=== PATIENT | female | born 1990 | race Two or more races ===

== ENCOUNTER 2017-02-28 21:18 | Emergency (ER) | payer OTHER ==
[~2017-02-28] VITALS: Ht 157.5 cm; Wt 78.9 kg
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
[2017-02-28] MEDS ORDERED: ACETAMINOPHEN ES 500 MG TABLET ONE (21:42)
--- NOTE | 2017-02-28 21:47 | NUR ---
PT REC'D MEDICATION ORDERED.
--- NOTE | 2017-02-28 21:50 | NUR ---
ROLLER SKATER IS AT THE BEDSIDE FOR BLOOD DRAW.
[2017-02-28 21:57] LABS: BASOPHILS % (AUTO) 0.3 % (0.0-2.0); EOSINOPHILS # (AUTO) 0.1 /CMM (0.0-0.7); EOSINOPHILS % (AUTO) 1.1 % (0.0-6.0); HEMATOCRIT 37 % (33-45); HEMOGLOBIN 12.5 g/dL (11.5-14.8); LYMPHOCYTES # (AUTO) 1.7 /CMM (0.8-4.8); LYMPHOCYTES % (AUTO) 19.1 % (20.0-44.0); MEAN CORPUSCULAR HEMOGLOBIN 30 PG (26.0-33.0); MEAN CORPUSCULAR HGB CONC 34 g/dl (31.0-36.0); MEAN CORPUSCULAR VOLUME 89 fL (82-100); MONOCYTES # (AUTO) 0.1 /CMM (0.1-1.30); MONOCYTES % (AUTO) 1.2 % (2.0-12.0); NEUTROPHILS % (AUTO) 78.3 % (43.0-81.0); PLATELET COUNT (AUTO) 302 /CMM (150-450); RDW COEFFICIENT OF VARIATION 12.8 (11.5-15.0); RED BLOOD CELL COUNT(AUTO) 4.15 MIL/uL (4.0-5.2)
[2017-02-28] MEDS ORDERED: ACETAMINOPHEN ES 500 MG TABLET PO ONE (22:00)
[2017-02-28 22:08] LABS: CALCIUM, SERUM 8.7 mg/dL (8.5-10.1); CREATININE 0.6 mg/dL (0.6-1.3); POTASSIUM 3.6 mmol/L (3.5-5.1)
[2017-02-28 22:24] LABS: APPEARANCE,URINE CLEAR (CLEAR); BILIRUBIN,URINE NEGATIVE (NEGATIVE); BLOOD, URINE TRACE Ery/uL (NEGATIVE); COLOR,URINE YELLOW (YELLOW); KETONES,URINE NEGATIVE (NEGATIVE); LEUKOCYTE ESTERASE ,URINE NEGATIVE (NEGATIVE); NITRITE, URINE NEGATIVE (NEGATIVE); PH,URINE 6.5 (5.0-8.0); PROTEIN,URINE NEGATIVE (NEGATIVE); UGLUCOSE NEGATIVE (NEGATIVE); UROBILINOGEN,URINE 0.2 EU/dL (0.2)
[2017-02-28 22:31] LABS: INR 0.96 (0.87-1.13)
[2017-02-28 22:33] LABS: BACTERIA,URINE Moderate /HPF (None Seen); RBC,URINE 0-2 /HPF (0-2); SQUAMOUS EPITHELIAL CELL,UR Many /HPF (None Seen)
--- NOTE | 2017-02-28 22:59 | NUR ---
Patient discharged to home in stable condition. Written and verbal after care instructions given. Patient verbalizes understanding of instruction AND RX. PT AMBULATED OUT WITH A STEADY GAIT. PT TO F/U WITH ER OR PMD IN 2 DAYS FOR REDRAW OF HCG LEVEL. VSS.
[2017-02-28 23:01] VITALS: BP 120/72
== END 2017-02-28 22:58 | disposition home or self-care (01) ==
LOC: ER 21:21
DX: O20.0 Threatened abortion (principal); K21.9 Gastro-esophageal reflux disease without esophagitis
CPT/HCPCS: 36415; 76856; 80048; 81001; 84702; 85025; 85730; 87086; 99285; A4606; Z7610; 81000-TC

== ENCOUNTER 2017-03-02 10:47 | Emergency (ER) | payer OTHER ==
[~2017-03-02] VITALS: Ht 157.5 cm; Wt 78.9 kg
--- NOTE | 2017-03-02 13:32 | NUR ---
CALLED ([facility] [employer] TECHNICIAN), TRANSFERRED CALL TO DR. HUNTLEY.
--- NOTE | 2017-03-02 13:39 | NUR ---
CALLED , TRANSFERRED CALL TO
[2017-03-02] MEDS ORDERED: OMEP40CA37 PO (13:48)
[2017-03-02] MEDS ORDERED: HYDR-3026 PO (13:48)
[2017-03-02 14:59] VITALS: BP 128/72
== END 2017-03-02 15:01 | disposition home or self-care (01) ==
LOC: ER 10:48
DX: O46.90 Antepartum hemorrhage, unspecified, unspecified trimester (principal); K21.9 Gastro-esophageal reflux disease without esophagitis
CPT/HCPCS: 36415; 76856; 84702; 99285; A4606; Z7610

== ENCOUNTER 2017-04-18 14:28 | Emergency (ER) | payer OTHER ==
[~2017-04-18] VITALS: Ht 157.5 cm; Wt 76.2 kg
[~2017-04-18 14:28] MED LIST: HYDR-3026 PO; OMEP40CA37 PO
[2017-04-18 14:37] VITALS: BP 125/81
== END 2017-04-18 15:56 | disposition home or self-care (01) ==
LOC: ER 14:38
DX: J06.9 Acute upper respiratory infection, unspecified (principal); K21.9 Gastro-esophageal reflux disease without esophagitis
CPT/HCPCS: 99282; A4606; Z7610

== ENCOUNTER 2017-07-16 22:28 | Emergency (ER) | payer OTHER ==
[~2017-07-16] VITALS: Ht 157.5 cm; Wt 75.3 kg
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
[2017-07-16 23:04] LABS: BASOPHILS % (AUTO) 0.3 % (0.0-2.0); EOSINOPHILS % (AUTO) 1.5 % (0.0-6.0); HEMATOCRIT 32 % (33-45); HEMOGLOBIN 11.4 g/dL (11.5-14.8); LYMPHOCYTES # (AUTO) 3.5 /CMM (0.8-4.8); LYMPHOCYTES % (AUTO) 30.1 % (20.0-44.0); MEAN CORPUSCULAR HGB CONC 35 g/dl (31.0-36.0); MEAN CORPUSCULAR VOLUME 88 fL (82-100); MONOCYTES # (AUTO) 0.5 /CMM (0.1-1.30); MONOCYTES % (AUTO) 4.4 % (2.0-12.0); NEUTROPHILS # (AUTO) 7.5 /CMM (1.8-8.9); NEUTROPHILS % (AUTO) 63.7 % (43.0-81.0); PLATELET COUNT (AUTO) 319 /CMM (150-450); RDW COEFFICIENT OF VARIATION 12.5 (11.5-15.0); RED BLOOD CELL COUNT(AUTO) 3.63 MIL/uL (4.0-5.2); WHITE BLOOD COUNT (AUTO) 11.7 K/uL (4.3-11.0)
[2017-07-16 23:09] LABS: APPEARANCE,URINE CLEAR (CLEAR); BILIRUBIN,URINE NEGATIVE (NEGATIVE); BLOOD, URINE TRACE-INTA Ery/uL (NEGATIVE); COLOR,URINE YELLOW (YELLOW); KETONES,URINE NEGATIVE (NEGATIVE); LEUKOCYTE ESTERASE ,URINE NEGATIVE (NEGATIVE); NITRITE, URINE NEGATIVE (NEGATIVE); PROTEIN,URINE NEGATIVE (NEGATIVE); UGLUCOSE NEGATIVE (NEGATIVE); UROBILINOGEN,URINE 0.2 EU/dL (0.2)
[2017-07-16 23:18] LABS: BACTERIA,URINE Few /HPF (None Seen); SQUAMOUS EPITHELIAL CELL,UR Moderate /HPF (None Seen); WBC,URINE 0-2 /HPF (0-3)
[2017-07-16 23:19] LABS: INR 0.97 (0.87-1.13)
[2017-07-16 23:21] LABS: ALBUMIN 3.4 g/dL (3.4-5.0); BILIRUBIN,DIRECT 0.1 mg/dL (0.0-0.2); BILIRUBIN,TOTAL 0.3 mg/dL (0.2-1.0); CALCIUM, SERUM 8.8 mg/dL (8.5-10.1); CREATININE 0.4 mg/dL (0.6-1.3); POTASSIUM 3.4 mmol/L (3.5-5.1); TOTAL PROTEIN, SERUM 7.1 g/dL (6.4-8.2)
--- NOTE | 2017-07-17 02:19 | NUR ---
Patient discharged to home in stable condition. Written and verbal after care instructions given. Patient verbalizes understanding of instruction. VSS UPON DISCHARGE.
[2017-07-17 02:21] VITALS: BP 115/67
== END 2017-07-17 02:22 | disposition home or self-care (01) ==
LOC: ER 22:29
DX: O34.81 Maternal care for other abnormalities of pelvic organs, first trimester (principal); N83.201 Unspecified ovarian cyst, right side; K21.9 Gastro-esophageal reflux disease without esophagitis; Z3A.01 Less than 8 weeks gestation of pregnancy
CPT/HCPCS: 36415; 76856; 80048; 80076; 81001; 84702; 85025; 85730; 99285; A4606; Z7610 ×2; 81000-TC

== ENCOUNTER 2017-08-14 09:11 | Emergency (ER) | payer OTHER ==
[~2017-08-14] VITALS: Ht 157.5 cm; Wt 76.7 kg
--- NOTE | 2017-08-14 09:15 | NUR ---
AAOX3, CAME TO ER C/O WORSENING EPIGASTRIC PAIN X 2 WEEKS, 8 WEEKS , A3. SKIN IS WARM AND DRY. RESP IS EVEN AND UNLABORED WITH NAD NOTED. AWAITING MD FOR EVAL.
--- NOTE | 2017-08-14 09:52 | NUR ---
URINE OBTAINED AND SENT TO LAB.
--- NOTE | 2017-08-14 09:58 | NUR ---
NEW IV STARTED ON RAC, 20G. BLOOD DRAWN AND SENT TO LAB.
[2017-08-14] MEDS ORDERED: PANTOPRAZOLE 40 MG TABLET.DR PO ONE ×2 (10:18→10:30)
[2017-08-14] MEDS ORDERED: ACETAMINOPHEN 325 MG TABLET ONE (10:18)
[2017-08-14 10:22] LABS: BASOPHILS % (AUTO) 0.1 % (0.0-2.0); HEMATOCRIT 32 % (33-45); HEMOGLOBIN 11.4 g/dL (11.5-14.8); LYMPHOCYTES # (AUTO) 2.3 /CMM (0.8-4.8); LYMPHOCYTES % (AUTO) 25.7 % (20.0-44.0); MEAN CORPUSCULAR HGB CONC 36 g/dl (31.0-36.0); MEAN CORPUSCULAR VOLUME 88 fL (82-100); MONOCYTES # (AUTO) 0.3 /CMM (0.1-1.30); MONOCYTES % (AUTO) 3.2 % (2.0-12.0); NEUTROPHILS # (AUTO) 6.3 /CMM (1.8-8.9); PLATELET COUNT (AUTO) 298 /CMM (150-450); RED BLOOD CELL COUNT(AUTO) 3.63 MIL/uL (4.0-5.2)
[2017-08-14 10:24] LABS: APPEARANCE,URINE Clear (CLEAR); BILIRUBIN,URINE Negative (NEGATIVE); BLOOD, URINE Trace-intact Ery/uL (NEGATIVE); COLOR,URINE Yellow (YELLOW); KETONES,URINE Negative (NEGATIVE); LEUKOCYTE ESTERASE ,URINE Negative (NEGATIVE); NITRITE, URINE Negative (NEGATIVE); PH,URINE 7.5 (5.0-8.0); PROTEIN,URINE Trace mg/dl (NEGATIVE); UGLUCOSE Negative (NEGATIVE); UROBILINOGEN,URINE 0.2 EU/dL (0.2)
--- NOTE | 2017-08-14 10:28 | NUR ---
PATIENT MEDICATED PER MD ORDERS.
[2017-08-14 10:29] LABS: ALBUMIN 3.1 g/dL (3.4-5.0); BILIRUBIN,DIRECT 0.1 mg/dL (0.0-0.2); BILIRUBIN,TOTAL 0.3 mg/dL (0.2-1.0); CALCIUM, SERUM 8.6 mg/dL (8.5-10.1); CREATININE 0.4 mg/dL (0.6-1.3); POTASSIUM 3.3 mmol/L (3.5-5.1); TOTAL PROTEIN, SERUM 7.1 g/dL (6.4-8.2)
[2017-08-14] MEDS ORDERED: ACETAMINOPHEN 325 MG TABLET PO ONE (10:30)
[2017-08-14 10:33] LABS: BACTERIA,URINE Moderate /HPF (None Seen); SQUAMOUS EPITHELIAL CELL,UR Moderate /HPF (None Seen)
--- NOTE | 2017-08-14 13:05 | NUR ---
Patient discharged to home in stable condition. Written and verbal after care instructions given. Patient verbalizes understanding of instruction.
[2017-08-14 13:15] VITALS: BP 124/72
== END 2017-08-14 13:05 | disposition home or self-care (01) ==
LOC: ER 09:12
DX: O99.611 Diseases of the digestive system complicating pregnancy, first trimester (principal); R10.13 Epigastric pain; K21.9 Gastro-esophageal reflux disease without esophagitis; Z3A.08 8 weeks gestation of pregnancy
CPT/HCPCS: 36415; 80048; 80076; 81001; 83690; 84702; 85025; 87086; 99284; A4606; Z7610; 81000-TC

== ENCOUNTER 2018-05-17 15:20 | Emergency (ER) | payer OTHER ==
[~2018-05-17] VITALS: Ht 167.6 cm; Wt 72.6 kg
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
--- NOTE | 2018-05-17 15:50 | NUR ---
DR LEONE AT BEDSIDE
[2018-05-17] MEDS ORDERED: HYDROCODONE/APAP 5/325MG 1 EACH TABLET PO ONE (16:00)
[2018-05-17] MEDS ORDERED: HYDROCODONE/APAP 5/325MG 1 EACH TABLET ONE (16:18)
[2018-05-17 16:24] VITALS: BP 149/88
--- NOTE | 2018-05-17 16:24 | NUR ---
Patient discharged to home in stable condition. Written and verbal after care instructions given. Patient verbalizes understanding of instruction.
== END 2018-05-17 16:25 | disposition home or self-care (01) ==
LOC: ER 15:22
DX: T23.151A Burn of first degree of right palm, initial encounter (principal); K21.9 Gastro-esophageal reflux disease without esophagitis; X10.2XXA Contact with fats and cooking oils, initial encounter; Y93.89 Activity, other specified; Y92.000 Kitchen of unspecified non-institutional (private) residence as the place of occurrence of the external cause; Y99.8 Other external cause status
CPT/HCPCS: 16000; 99284; A4606; A6403

== ENCOUNTER 2019-01-31 09:21 | Emergency (ER) | payer OTHER ==
[~2019-01-31] VITALS: Ht 160 cm; Wt 81.6 kg
[~2019-01-31 09:21] MED LIST changes: -HYDR-3026 PO; +HYDR-500 PO; +OMEP40CA13 PO; -OMEP40CA37 PO
--- NOTE | 2019-01-31 09:27 | NUR ---
CAME IN FOR ABDOMINAL PAIN AND VOMITING X6 SINCE YESTERDAY. TO ER BED 10, HOOKED TO MONITOR, CHANGED TO HOSP [facility], AWAITING MD EAGLE.
--- NOTE | 2019-01-31 09:30 | NUR ---
URINE SPECIMEN COLLECTED AND SENT TO LAB.
--- NOTE | 2019-01-31 09:35 | NUR ---
DR TYLER AT BEDSIDE
[2019-01-31] MEDS ORDERED: ONDANSETRON HCL/PF 4 MG/2 ML VIAL ONE (09:46)
[2019-01-31 09:47] LABS: BASOPHILS % (AUTO) 0.2 % (0.0-2.0); EOSINOPHILS % (AUTO) 0.9 % (0.0-6.0); HEMATOCRIT 40 % (33-45); HEMOGLOBIN 13.4 g/dL (11.5-14.8); LYMPHOCYTES # (AUTO) 0.9 /CMM (0.8-4.8); LYMPHOCYTES % (AUTO) 7.4 % (20.0-44.0); MEAN CORPUSCULAR HGB CONC 33 g/dl (31.0-36.0); MEAN CORPUSCULAR VOLUME 90 fL (82-100); MONOCYTES # (AUTO) 0.4 /CMM (0.1-1.30); MONOCYTES % (AUTO) 3.6 % (2.0-12.0); NEUTROPHILS # (AUTO) 10.6 /CMM (1.8-8.9); NEUTROPHILS % (AUTO) 87.9 % (43.0-81.0); PLATELET COUNT (AUTO) 325 /CMM (150-450); RED BLOOD CELL COUNT(AUTO) 4.44 MIL/uL (4.0-5.2); WHITE BLOOD COUNT (AUTO) 12.1 K/uL (4.3-11.0)
[2019-01-31 09:56] LABS: CREATININE 0.5 mg/dL (0.6-1.3); POTASSIUM 3.7 mmol/L (3.5-5.1)
[2019-01-31] MEDS ORDERED: ONDANSETRON HCL/PF 4 MG/2 ML VIAL IVP ONE (10:00)
[2019-01-31] MEDS ORDERED: IV NS 0.9% 1,000 ML BAG IV ONE (10:00)
[2019-01-31 10:03] LABS: BILIRUBIN,DIRECT 0.1 mg/dL (0.0-0.2); BILIRUBIN,TOTAL 0.5 mg/dL (0.2-1.0)
[2019-01-31 10:04] LABS: ALBUMIN 3.9 g/dL (3.4-5.0); TOTAL PROTEIN, SERUM 8.1 g/dL (6.4-8.2)
--- NOTE | 2019-01-31 11:00 | NUR ---
PATIENT ABLE TO TOLERATE DRINKING WATER WITHOUT VOMITING. MADE MD AWARE
[2019-01-31 11:06] VITALS: BP 127/80
--- NOTE | 2019-01-31 11:13 | NUR ---
IV removed. Catheter intact and site benign. Pressure and 4x4 applied to site. No bleeding noted.Patient discharged to home in stable condition. Written and verbal after care instructions given. Patient verbalizes understanding of instruction.
== END 2019-01-31 11:14 | disposition home or self-care (01) ==
LOC: ER 09:23
DX: R11.2 Nausea with vomiting, unspecified (principal); R19.7 Diarrhea, unspecified; K21.9 Gastro-esophageal reflux disease without esophagitis
CPT/HCPCS: 36415; 80048; 80076; 83690; 84702; 85025; 96361; 96374; 99283; J2405; J7030

== ENCOUNTER 2019-11-18 20:25 | Emergency (ER) | payer OTHER ==
[~2019-11-18] VITALS: Ht 157.5 cm; Wt 79.4 kg
[2019-11-18 20:27] VITALS: BP 124/79
[2019-11-18] MEDS ORDERED: FAMOTIDINE (20 MG) 20 MG TABLET ONE (20:46)
[2019-11-18] MEDS ORDERED: diphenhydrAMINE HCL 50 MG CAPSULE ONE (20:46)
[2019-11-18] MEDS ORDERED: predniSONE 20 MG TABLET ONE (20:47)
[2019-11-18] MEDS: predniSONE 20 MG TABLET PO ONE (20:49)
[2019-11-18] MEDS: FAMOTIDINE (20 MG) 20 MG TABLET PO ONE (20:49)
[2019-11-18] MEDS: diphenhydrAMINE HCL 50 MG CAPSULE PO ONE (20:49)
== END 2019-11-18 21:02 | disposition home or self-care (01) ==
LOC: ER 20:29
DX: T61.11XA Scombroid fish poisoning, accidental (unintentional), initial encounter (principal); L50.0 Allergic urticaria; K21.9 Gastro-esophageal reflux disease without esophagitis; E66.9 Obesity, unspecified; Z68.32 Body mass index [BMI] 32.0-32.9, adult; Z79.899 Other long term (current) drug therapy; Y92.89 Other specified places as the place of occurrence of the external cause
CPT/HCPCS: 99284; J7512; Q0163

== ENCOUNTER 2020-09-04 19:24 | Inpatient (IN) | payer OTHER ==
[~2020-09-04] VITALS: Ht 157.5 cm; Wt 86.2 kg
[~2020-09-04 19:24] MED LIST changes: -OMEP40CA13 PO; +OMEP40CA21 PO
--- NOTE | 2020-09-04 19:30 | NUR ---
The patient bib mother for c/o lower mid abd pain since yesterday,. Rates pain 8/. +n/v +fever. The patient is alert and oriented x4. In room air and denies SOB. Respiration regular and unlabored. Will continue to monitor the patient.
--- NOTE | 2020-09-04 19:55 | NUR ---
URINE COLLECTED AND SENT TO THE LAB
[2020-09-04] MEDS ORDERED: ONDANSETRON HCL/PF 4 MG/2 ML VIAL IVP ONE (20:00)
[2020-09-04] MEDS ORDERED: MORPHINE SULFATE INJ 2 MG/ML DISP.SYRIN IV ONE ×2 (20:00→23:00)
--- NOTE | 2020-09-04 20:00 | NUR ---
ESTABLISHED RAC G 20, BLOOD SPECIMEN COLLECTED AND SENT TO THE LAB.
[2020-09-04] MEDS ORDERED: ONDANSETRON HCL/PF 4 MG/2 ML VIAL ONE (20:09)
[2020-09-04] MEDS ORDERED: MORPHINE SULFATE INJ 4 MG/ML DISP.SYRIN ONE (20:10)
[2020-09-04 20:29] LABS: BASOPHILS # (AUTO) 0.1 /CMM (0.0-0.2); BASOPHILS % (AUTO) 0.5 % (0.0-2.0); EOSINOPHILS % (AUTO) 0.2 % (0.0-6.0); HEMATOCRIT 36 % (33-45); HEMOGLOBIN 12.2 g/dL (11.5-14.8); LYMPHOCYTES # (AUTO) 2.2 /CMM (0.8-4.8); LYMPHOCYTES % (AUTO) 14.2 % (20.0-44.0); MEAN CORPUSCULAR HGB CONC 34 g/dl (31.0-36.0); MEAN CORPUSCULAR VOLUME 91 fL (82-100); MONOCYTES # (AUTO) 0.7 /CMM (0.1-1.30); MONOCYTES % (AUTO) 4.6 % (2.0-12.0); NEUTROPHILS # (AUTO) 12.6 /CMM (1.8-8.9); NEUTROPHILS % (AUTO) 80.5 % (43.0-81.0); PLATELET COUNT (AUTO) 304 /CMM (150-450); RED BLOOD CELL COUNT(AUTO) 3.98 MIL/uL (4.0-5.2); WHITE BLOOD COUNT (AUTO) 15.6 K/uL (4.3-11.0)
[2020-09-04 20:36] LABS: CALCIUM, SERUM 8.7 mg/dL (8.5-10.1); CREATININE 0.7 mg/dL (0.6-1.3); POTASSIUM 3.4 mmol/L (3.5-5.1)
[2020-09-04 20:43] LABS: ALBUMIN 3.6 g/dL (3.4-5.0); BILIRUBIN,DIRECT 0.2 mg/dL (0.0-0.2); BILIRUBIN,TOTAL 0.7 mg/dL (0.2-1.0); TOTAL PROTEIN, SERUM 7.6 g/dL (6.4-8.2)
[2020-09-04] MEDS ORDERED: IV NS 0.9% 250 ML IV ONE (21:11)
[2020-09-04] MEDS ORDERED: CT SWABBABLE VALVE TRANS SET 1 EA INFUS.SET MC ONE (21:11)
[2020-09-04] MEDS ORDERED: IOHEXOL-300 100 ML VIAL IV ONE (21:11)
--- NOTE | 2020-09-04 21:46 | NUR ---
DR. KAPLAN SPEAKING WITH RADIOLOGIST VIA TELEPHONE
--- NOTE | 2020-09-04 21:56 | NUR ---
DR. KAPLAN SPEAKING WITH ASSIST[facility], DR. CROWDER
[2020-09-04] MEDS ORDERED: PIPERACILLIN /TAZOBACTAM 3.375 G VIAL IV ONE (21:57)
[2020-09-04] MEDS ORDERED: PIPERACILLIN /TAZOBACTAM 3.375 G in IV D5W 50 ML IV ONE (22:00)
--- NOTE | 2020-09-04 22:17 | NUR ---
PER PARAMEDIC INSTRUCTOR CARMEN, AUTH TO ADMIT TO [facility] (AUTH TRACKING #[id number])
[2020-09-04] MEDS ORDERED: IV NS 0.9% 1,000 ML BAG IV ONE (22:30)
--- NOTE | 2020-09-04 22:50 | NUR ---
DR. KAPLAN SPEAKING WITH DR. ENGLE REGARDING ADMISSION
[2020-09-04] MEDS ORDERED: ACETAMINOPHEN 325 MG TABLET PO ONE (23:00)
--- NOTE | 2020-09-04 23:17 | NUR ---
BED ASSIGNMENT 114-1
--- NOTE | 2020-09-04 23:47 | NUR ---
REPORT GIVEN TO NURSE EVERARDO
[2020-09-05 00:05] VITALS: BP 98/54
--- NOTE | 2020-09-05 00:05 | NUR ---
RECEIVED PT FROM ER VIA [facility] WITH CC OF LEFT LOWER ABD PAIN WITH DX OF COLON PERFORATION, ON ROOM AIR TOLERATING WELL, SPO2 99% ABLE TO WALK FROM [facility] TO BED, V/S CHECKED AND RECORDED, STILL WITH PAIN OF 6/10 WITH FACIAL GRIMACING NOTED, HEAD TO TOE ASSESSMENT DONE, INITIAL ADMISSION ASSESSMENT DONE, PT TOLD ME SHE DID NOT RECEIVED ANY COVID VACCINE YET, HAVE RAC # 20 IV DRESSING DRY AND INTACT PATENT AND FLUSHED, ROOM ORIENTATION DONE, BED ON LOWEST POSITION AND LOCKED SIDE RAILS UP X 2 CALL LIGHT WITHIN REACH WILL CONT TO MONITOR
--- NOTE | 2020-09-05 00:30 | NUR ---
CALL DR ENGLE FOR ADMISSION ORDER, ORDER WAS GIVEN NOTED AND CARRIED OUT
--- NOTE | 2020-09-05 00:40 | NUR ---
RECEIVED CALL FROM DR. CROWDER AND HE TALK TO THE PATIENT ABOUT THE POSSIBLITY OF SURGERY IN THE MORNING, PER DR. CROWDER WE WILL OBSERVED FIRST THE PATIENT UNTIL MORNING THEN HE WILL SEE THE PATIENT AND ASSESS IF SHE STILL NEED THE SURGERY OR NOT BUT STILL KEEP THE PT NPO FOR NOW HE ALSO SAYS THAT IF THE PT EXPERIENCE SEVERE PAIN INFORMED HIM IMMEDIATELY AND HE WILL DO THE SURGERY EARLY IN THE MORNING, FOR NOW KEEP PT ON OBSERVATION, HE ALSO SUGGEST THE ZOSYN TO BE Q6H INSTEAD OF Q8H WILL INFORMED DR. ENGLE ABOUT THE RECOMMENDATION, WILL CONT TO MONITOR THE PT
--- NOTE | 2020-09-05 00:45 | NUR ---
DR HARMON AGREE TO GIVE ZOSYN 3.375 G IV Q6H NOTED AND CARRIED OUT
[2020-09-05] MEDS ORDERED: IV D5/ 0.9% NACL 1,000 ML IV PRN (01:00)
[2020-09-05] MEDS ORDERED: ZOLPIDEM TARTRATE 5 MG TABLET PO PRN (01:00)
[2020-09-05] MEDS ORDERED: diphenhydrAMINE HCL 50 MG/ML VIAL IV PRN (01:00)
[2020-09-05 04:00] VITALS: BP 93/53
[2020-09-05] MEDS: MORPHINE SULFATE INJ 4 MG/ML DISP.SYRIN IM PRN ×2 (04:33→10:24)
[2020-09-05 05:56] LABS: BASOPHILS % (AUTO) 0.1 % (0.0-2.0); EOSINOPHILS % (AUTO) 0.2 % (0.0-6.0); HEMATOCRIT 31 % (33-45); HEMOGLOBIN 10.5 g/dL (11.5-14.8); LYMPHOCYTES % (AUTO) 13.9 % (20.0-44.0); MEAN CORPUSCULAR HGB CONC 34 g/dl (31.0-36.0); MEAN CORPUSCULAR VOLUME 91 fL (82-100); MONOCYTES # (AUTO) 0.5 /CMM (0.1-1.30); MONOCYTES % (AUTO) 3.3 % (2.0-12.0); NEUTROPHILS # (AUTO) 11.9 /CMM (1.8-8.9); NEUTROPHILS % (AUTO) 82.5 % (43.0-81.0); PLATELET COUNT (AUTO) 264 /CMM (150-450); RED BLOOD CELL COUNT(AUTO) 3.46 MIL/uL (4.0-5.2); WHITE BLOOD COUNT (AUTO) 14.4 K/uL (4.3-11.0)
[2020-09-05] MEDS ORDERED: PIPERACILLIN /TAZOBACTAM 3.375 G in IV D5W 50 ML IV SCH (06:00)
--- NOTE | 2020-09-05 06:50 | NUR ---
PT ON BED ASLLEEP EASY TO WAKE UP NO SIGN OF RESPIRATORY DISTRESS MINIMAL PAIN 3/10 ON LEFT LOWER ABDOMEN STILL NOTED PT ABLE TO WALK TO THE BATHROOM, ALL NEEDS ATTENDED, BED ON LOWEST POSITION AND LOCKED SIDE RAILS UP X2 CALL LIGHT WITHIN REACH WILL ENDORSED TO AM SHIFT NURSE
[2020-09-05 06:52] LABS: CALCIUM, SERUM 7.7 mg/dL (8.5-10.1); CREATININE 0.6 mg/dL (0.6-1.3); POTASSIUM 2.9 mmol/L (3.5-5.1)
--- NOTE | 2020-09-05 07:30 | NUR ---
MS RN AM NOTES PT IN BED, ASLEEP, EASY TO WAKE UP AND RESPONDS TO NAME AND TOUCH, ON RA, NO SOB, RESPIRATION UNLABORED, MINIMAL PAIN 3-4/10 ON LEFT LOWER ABDOMEN STILL NOTED, WILL ADMINISTER PAIN MEDS IN A WHILE, RAC WITH D5NS AT 100 ML/HR, SITE CLEAR. REMAINS ON NPO, BRP, POC DISCUSSED WITH PT, VERBALIZED UNDERSTANDING, BED LOW, LOCKED, SAFETY MEASURES IN PLACE. CALL LIGHT WITHIN REACH.W ILL CONTINUE TO MONITOR.
[2020-09-05 08:00] VITALS: BP 107/59
[2020-09-05] MEDS ORDERED: CITA20TA16 PO (08:11)
[2020-09-05] MEDS: PANTOPRAZOLE 40 MG VIAL IV SCH (08:31)
[2020-09-05] MEDS: PIPERACILLIN /TAZOBACTAM 3.375 G in IV D5W 100 ML IV SCH ×2 (08:32→16:08)
[2020-09-05] MEDS: POTASSIUM CHLORIDE 20 MEQ TAB.PRT.SR PO SCH ×2 (09:27→10:23)
[2020-09-05] MEDS: CITALOPRAM HYDROBROMIDE 20 MG TABLET PO SCH (09:28)
--- NOTE | 2020-09-05 09:30 | NUR ---
RN NOTES DUE MEDS GIVEN SEEN BY DR. CROWDER EARLIER FOR SURGICAL ASSESSMENT. PER MD, WILL MONITOR FOR NOW. KEEP NPO.
--- NOTE | 2020-09-05 13:15 | NUR ---
RN NOTE DR. ESCALANTE INFORMED RE PT STILL COMPLAINS OF 8/10 LEFT LOWER QUADRANT PAIN DESPITE MORPHINE SULFATE 4 MG IV Q 4 HOURS. PER MD TO DC MORPHINE SULFATE AND START DILAUDID 1 MG IV Q4H PRN
[2020-09-05] MEDS: Potassium Chloride 20 MEQ in IV D5/ 0.9% NACL 1,000 ML IV PRN (13:26)
--- NOTE | 2020-09-05 14:00 | NUR ---
RN NOTES PATIENT NOW COMPLAINT THAT SHE WANT S TO PASS OUT GAS BUT COULD NOT AND SAYS IT PAINFUL. PER DR. ESCALANTE TO START COLACE 100 MG PO BID
[2020-09-05 16:00] VITALS: BP 103/61
--- NOTE | 2020-09-05 16:00 | NUR ---
RN NOTES PATIENT WITH ELEVATED TEMP 100.3. COOLING MEASURES AND TYLENOL GIVEN.
[2020-09-05] MEDS: DOCUSATE SODIUM 100 MG CAPSULE PO SCH (16:08)
[2020-09-05] MEDS: ACETAMINOPHEN 325 MG TABLET PO PRN (16:08)
--- NOTE | 2020-09-05 16:30 | NUR ---
RN NOTES TEMPERATURE RE CHECKED 99.7
--- NOTE | 2020-09-05 18:44 | NUR ---
MS RN CLOSING NOTES PT IN BED, RESTING, DOZING FROM TIME TO TIME, EASY TO WAKE UP AND RESPONDS TO NAME AND TOUCH, ON RA, NO SOB, RESPIRATION UNLABORED, MINIMAL PAIN 3-4/10 ON LEFT LOWER ABDOMEN STILL NOTED, ON AND OFF, PATIENT STATES, SHE WANTS TO PASS OUT GAS BUT IT IS PAINFUL. RAC WITH IVF RUNNING AT 100 ML/HR, SITE CLEAR. REMAINS ON NPO EXCEPT MEDS, BRP, BED LOW, LOCKED, SAFETY MEASURES IN PLACE. ALL NEEDS MET FOR NOW. NO OTHER SIGNIFICANT CHANGE IN CONDITION, CALL LIGHT WITHIN REACH. WILL ENDORSE TO NEXT SHIFT FOR ADRIANA.
--- NOTE | 2020-09-05 19:00 | NUR ---
RN NOTE RECEIVED PATIENT IN BED RESTING ALERT ORIENTED X4 ABLE TO MAKE NEEDS KNOWN,ON ROOM AIR O2:98%,IV SITE IS ON RAC INTACT PATENT ON IV POTASSIUM 20 MEQ ON D5NS 100CC/HR, NPO EXCEPT THE MEDS,CONTINENT TO BOWEL/BLADDER SAFETY MEASURE IMPLEMENT BED IN LOW POSITION AND LOCKED,CALL LIGHT WITHIN REACH,CONTINUE TO MONITOR.
[2020-09-05] MEDS: HYDROMORPHONE 1 MG/1 ML DISP.SYRIN IV PRN (22:22)
[2020-09-06] VITALS: BP 99/59
[2020-09-06] MEDS: PIPERACILLIN /TAZOBACTAM 3.375 G in IV D5W 100 ML IV SCH ×4 (00:06→23:26)
[2020-09-06] MEDS: Potassium Chloride 20 MEQ in IV D5/ 0.9% NACL 1,000 ML IV PRN ×2 (04:37→17:37)
--- NOTE | 2020-09-06 06:52 | NUR ---
RN NOTE PATIENT REMAINS ON ALERT ORIENTED X4 VERBALLY RESPONSIVE ON ROOM AIR NO SOB NOT ACUTE DISTRESS NOTED PATIENT IS ON NPO EXCEPT MEDS IV HYDRATION POTASSIUM 20MEQ IN D5NS RUNNING 100CC/HR ALL DUE MEDS GIVEN MD ORDERED ALL NEEDS MET ENDORSE NEXT COMING SHIFT FOR CONTINUATION OF CARE.
[2020-09-06 06:57] LABS: BASOPHILS % (AUTO) 0.2 % (0.0-2.0); EOSINOPHILS % (AUTO) 1.2 % (0.0-6.0); HEMATOCRIT 32 % (33-45); HEMOGLOBIN 10.6 g/dL (11.5-14.8); LYMPHOCYTES # (AUTO) 2.1 /CMM (0.8-4.8); LYMPHOCYTES % (AUTO) 17.6 % (20.0-44.0); MEAN CORPUSCULAR HGB CONC 33 g/dl (31.0-36.0); MEAN CORPUSCULAR VOLUME 92 fL (82-100); MONOCYTES # (AUTO) 0.5 /CMM (0.1-1.30); MONOCYTES % (AUTO) 4.4 % (2.0-12.0); NEUTROPHILS # (AUTO) 9.2 /CMM (1.8-8.9); NEUTROPHILS % (AUTO) 76.6 % (43.0-81.0); PLATELET COUNT (AUTO) 274 /CMM (150-450)
--- NOTE | 2020-09-06 07:15 | NUR ---
RN OPENING NOTES PT RECEIVED IN BED RESTING IN SUPINE POSITION. PATIENT ON ROOM AIR TOLERATING WELL WITH NO SIGNS OF SOB. RAC IV ACCESS #20 G PATENT AND INTACT WITH KCL 20 MEQ IN D5NS RUNNING AT 100 ML/HR. PATIENT ON NPO EXCEPT MEDS. SAFETY PRECAUTIONS IMPLEMENTED, SIDE RAILS UP X2, CALL LIGHT WITHIN REACH, BED LOCKED IN LOWEST POSITION. WILL CONTINUE TO MONITOR AND PROVIDE CARE THROUGHOUT SHIFT.
[2020-09-06 07:36] LABS: CALCIUM, SERUM 8.2 mg/dL (8.5-10.1); CREATININE 0.5 mg/dL (0.6-1.3); MAGNESIUM 2.1 mg/dL (1.8-2.4); POTASSIUM 3.8 mmol/L (3.5-5.1)
[2020-09-06 08:00] VITALS: BP 109/65
[2020-09-06] MEDS: PANTOPRAZOLE 40 MG VIAL IV SCH (08:29)
[2020-09-06] MEDS: CITALOPRAM HYDROBROMIDE 20 MG TABLET PO SCH (08:32)
[2020-09-06] MEDS: DOCUSATE SODIUM 100 MG CAPSULE PO SCH ×2 (08:32→17:35)
[2020-09-06] MEDS: HYDROCODONE/APAP 5/325MG TABLET PO PRN (08:37)
[2020-09-06] MEDS ORDERED: BISACODYL (5 MG) 5 MG TABLET.DR PO ONE (09:00)
[2020-09-06] MEDS: ONDANSETRON HCL/PF 4 MG/2 ML VIAL IV PRN ×2 (11:32→18:33)
[2020-09-06 16:00] VITALS: BP 108/68
[2020-09-06] MEDS: HYDROMORPHONE 1 MG/1 ML DISP.SYRIN IV PRN ×2 (17:35→22:37)
--- NOTE | 2020-09-06 18:42 | NUR ---
RN CLOSING NOTES PT IN BED RESTING IN RIGHT LATERAL POSITION. PATIENT ON ROOM AIR TOLERATING WELL WITH NO SIGNS OF SOB. RAC IV ACCESS #20 G PATENT AND INTACT WITH KCL 20 MEQ IN D5NS RUNNING AT 100 ML/HR. PATIENT HAD I EPISODE OF YELLOW EMESIS (50 ML) PRIOR TO START OF CLEAR LIQUID DIET. PATIENT COMPLAINED OF ABDOMINAL PAIN 2 X AND NORCO AND DILAUDID ADMINISTERED ON SEPARATE OCCASIONS. PATIENT HAD 4 LOOSE WATERY STOOLS BROWNISH, GREENISH COLOR. SAFETY PRECAUTIONS IMPLEMENTED, SIDE RAILS UP X2, CALL LIGHT WITHIN REACH, BED LOCKED IN LOWEST POSITION. WILL ENDORSE CARE TO UPCOMING SHIFT.
--- NOTE | 2020-09-06 19:30 | NUR ---
RN NOTE RECEIVED PT IN BED, ALERT AND ORIENTED X 4. COMPLAINS OF ABDOMINAL PAIN. PER PT PAIN IS GETTING BETTER NOW. PT NOT IN ANY DISTRESS. DENIES SOB. IV ON RAC PATENTAND INTACT, D5NS WITH 20MEQ KCL RUNNING. NO SIGNS OF INFILTRATION NOTED. ALL SAFETY MEASURES IN PLACE PER PROTOCOL, CALL LIGHT WITHIN REACH, BED LOCKED IN LOWEST POSITION. SIDE RAILS UP X 2. WILL CONTINUE TO MONITOR.
[2020-09-06 20:00] VITALS: BP 106/63
[2020-09-06] MEDS: ACETAMINOPHEN 325 MG TABLET PO PRN (22:08)
--- NOTE | 2020-09-06 22:13 | NUR ---
RN NOTE PT NOTED WITH ELEVATED TEMP 100.5, TYLENOL GIVEN ORDERED. WILL CONTINUE TO MONITOR.
--- NOTE | 2020-09-07 00:15 | NUR ---
RN NOTE TEMP 98.9. COOLING MEASURES WERE APPLIED.
[2020-09-07 04:00] VITALS: BP_SYST 93; BP_SYST 95; BP_DIAS 57
[2020-09-07] MEDS: Potassium Chloride 20 MEQ in IV D5/ 0.9% NACL 1,000 ML IV PRN ×2 (04:00→17:12)
[2020-09-07 05:57] LABS: BASOPHILS % (AUTO) 0.1 % (0.0-2.0); EOSINOPHILS % (AUTO) 0.8 % (0.0-6.0); HEMATOCRIT 31 % (33-45); HEMOGLOBIN 10.4 g/dL (11.5-14.8); LYMPHOCYTES # (AUTO) 1.5 /CMM (0.8-4.8); LYMPHOCYTES % (AUTO) 12.7 % (20.0-44.0); MEAN CORPUSCULAR HGB CONC 33 g/dl (31.0-36.0); MEAN CORPUSCULAR VOLUME 92 fL (82-100); MONOCYTES # (AUTO) 0.5 /CMM (0.1-1.30); MONOCYTES % (AUTO) 4.3 % (2.0-12.0); NEUTROPHILS # (AUTO) 9.7 /CMM (1.8-8.9); NEUTROPHILS % (AUTO) 82.1 % (43.0-81.0); PLATELET COUNT (AUTO) 302 /CMM (150-450); RED BLOOD CELL COUNT(AUTO) 3.38 MIL/uL (4.0-5.2); WHITE BLOOD COUNT (AUTO) 11.8 K/uL (4.3-11.0)
[2020-09-07 06:48] LABS: CALCIUM, SERUM 8.2 mg/dL (8.5-10.1); CREATININE 0.6 mg/dL (0.6-1.3); POTASSIUM 3.9 mmol/L (3.5-5.1)
--- NOTE | 2020-09-07 07:02 | NUR ---
RN NOTE PT ABLE TO MAKE NEEDS KNOWN. PT STILL COMPLAINS OF ABDOMINAL PAIN 09/24. REFUSED TO TAKE ANY PAIN MED AT THIS TIME. NO DISTRESS NOTED. PT AMBULATES TO RESTROOM, STEADY GAIT. CONTINUE ON IVF. IV REMAIN PATENT AND INTACT. PT WITH LOOSE STOOL, 1 BM DURING SHIFT. ALL SAFETY MEASURES MAINTAINED. WILL ENDORSE TO NEXT SHIFT NURSE FOR ADRIANA.
--- NOTE | 2020-09-07 07:20 | NUR ---
RN OPENING NOTES PT RECEIVED IN BED RESTING IN SUPINE POSITION. PATIENT ON ROOM AIR TOLERATING WELL WITH NO SIGNS OF SOB. RAC IV ACCESS #20 G PATENT AND INTACT WITH KCL 20 MEQ IN D5NS RUNNING AT 100 ML/HR. PATIENT ON CLEAR LIQUID DIET. SAFETY PRECAUTIONS IMPLEMENTED, SIDE RAILS UP X2, CALL LIGHT WITHIN REACH, BED LOCKED IN LOWEST POSITION. WILL CONTINUE TO MONITOR AND PROVIDE CARE THROUGHOUT SHIFT.
[2020-09-07 08:00] VITALS: BP 106/56
[2020-09-07] MEDS: PANTOPRAZOLE 40 MG VIAL IV SCH (08:11)
[2020-09-07] MEDS: PIPERACILLIN /TAZOBACTAM 3.375 G in IV D5W 100 ML IV SCH ×2 (08:13→15:12)
[2020-09-07] MEDS: DOCUSATE SODIUM 100 MG CAPSULE PO SCH ×2 (08:13→17:12)
[2020-09-07] MEDS: CITALOPRAM HYDROBROMIDE 20 MG TABLET PO SCH (08:14)
[2020-09-07] MEDS: HYDROCODONE/APAP 5/325MG TABLET PO PRN (08:17)
[2020-09-07] MEDS ORDERED: ACET-907 PO (08:50)
[2020-09-07] MEDS ORDERED: METR500T PO (08:50)
[2020-09-07] MEDS ORDERED: LEVO500T90 PO (08:50)
[2020-09-07 16:00] VITALS: BP 109/65
--- NOTE | 2020-09-07 18:49 | NUR ---
RN CLOSING NOTES PT IN BED RESTING IN SUPINE POSITION. PATIENT ON ROOM AIR TOLERATING WELL WITH NO SIGNS OF SOB. RAC IV ACCESS #20 G PATENT AND INTACT WITH KCL 20 MEQ IN D5NS RUNNING AT 100 ML/HR. PATIENT ON CLEAR LIQUID DIET. SAFETY PRECAUTIONS IMPLEMENTED, SIDE RAILS UP X2, CALL LIGHT WITHIN REACH, BED LOCKED IN LOWEST POSITION. WILL ENDORSE CARE TO UPCOMING SHIFT. WENT OVER DISCHARGE PAPERWORK AND INSTRUCTIONS PRIOR TO DISCHARGE. PATIENT WILL BE GOING HOME ONCE ANTIBIOTICS ARE COMPLETED. MOTHER WILL BE PICKING PATIENT UP. INFORMED PATIENT TO F/U WITH PCP WITHIN 2 WEEKS AND TO F/U WITH GI WITHIN 4-7 WEEKS REGARDING ELECTIVE COLONOSCOPY.
[2020-09-07 20:00] VITALS: BP 119/77
--- NOTE | 2020-09-07 20:03 | NUR ---
MS/TELE/RN RECEIVED PATIENT AWAKE, ALERT, ORIENTED, COMFORTABLE, NO C/O PAIN, NO DISTRESS NOTED, VITAL SIGNS STABLE, AFEBRILE. PATIENT WILL BE DISCHARGED TONIGHT AFTER FINISHING UP THE ANTIBIOTIC, WILL MONITOR.
--- NOTE | 2020-09-07 20:36 | NUR ---
EVETTE/RN PATIENT LEFT THE FLOOR AT 2004 ACCOMPANIED BY HER , IN STABLE CONDITION. IV AND ARMBAND WERE REMOVED,
[2020-09-08] MEDS ORDERED: PANTOPRAZOLE 40 MG TABLET.DR PO SCH (07:30)
== END 2020-09-07 20:53 | disposition home or self-care (01) | DRG 720 ==
LOC: ER 19:25 → MEDSG1 23:27
PROVIDERS: ADMIT Internal Medicine; ATTEND Internal Medicine
DX: A41.9 Sepsis, unspecified organism (principal); K57.20 Diverticulitis of large intestine with perforation and abscess without bleeding; E66.9 Obesity, unspecified; K21.9 Gastro-esophageal reflux disease without esophagitis; Z20.822 Contact with and (suspected) exposure to COVID-19; F32.9 Major depressive disorder, single episode, unspecified; Z68.34 Body mass index [BMI] 34.0-34.9, adult
CPT/HCPCS: 36415; 76856-TC; 80048-TC; 80076-TC; 83605-TC; 83690-TC; 83735-TC; 84702-TC; 85025-TC; 85730-TC; 86850-TC; 87040-TC; 87081-TC; C9113; C9803; G0378; J1170; J2270; J2405; J2543; J3480; J7030; J7042; J7050; J7060; Q9967

== ENCOUNTER 2020-10-06 14:19 | Emergency (ER) | payer OTHER ==
[~2020-10-06] VITALS: Ht 165.1 cm; Wt 95.3 kg
[~2020-10-06 14:19] MED LIST changes: +ACET-907 PO; +CITA20TA16 PO; -HYDR-500 PO; +LEVO500T90 PO; +METR500T PO; -OMEP40CA21 PO
--- NOTE | 2020-10-06 14:33 | NUR ---
CALLED TO BED 2, NOT IN WAITING ROOM
--- NOTE | 2020-10-06 14:50 | NUR ---
TO ER BED 2, C/O LLQ ABDOMINAL PAIN STARTED YESTERDAY, USUALLY GET WHEN MENSTRUATING PER PT, AWAITING MD EAGLE
--- NOTE | 2020-10-06 14:52 | NUR ---
SALINE LOCK ESTABLISHED, AT BEDSIDE
[2020-10-06] MEDS ORDERED: ONDANSETRON HCL/PF 4 MG/2 ML VIAL ONE ×3 (15:08→23:04)
[2020-10-06] MEDS ORDERED: MORPHINE SULFATE INJ 4 MG/ML DISP.SYRIN ONE ×2 (15:09→23:04)
[2020-10-06 15:10] LABS: BASOPHILS # (AUTO) 0.1 K/uL (0.0-0.2); BASOPHILS % (AUTO) 0.9 % (0.0-2.0); EOSINOPHILS % (AUTO) 1.3 % (0.0-6.0); HEMATOCRIT 36 % (33-45); HEMOGLOBIN 12.3 g/dL (11.5-14.8); LYMPHOCYTES # (AUTO) 3.4 K/uL (0.8-4.8); LYMPHOCYTES % (AUTO) 26.3 % (20.0-44.0); MEAN CORPUSCULAR HGB CONC 34 g/dl (31.0-36.0); MEAN CORPUSCULAR VOLUME 90 fL (82-100); MONOCYTES # (AUTO) 0.5 K/uL (0.1-1.30); MONOCYTES % (AUTO) 4.1 % (2.0-12.0); NEUTROPHILS # (AUTO) 8.7 K/uL (1.8-8.9); NEUTROPHILS % (AUTO) 67.4 % (43.0-81.0); PLATELET COUNT (AUTO) 300 K/uL (150-450); RED BLOOD CELL COUNT(AUTO) 4.05 MIL/uL (4.0-5.2); WHITE BLOOD COUNT (AUTO) 12.9 K/uL (4.3-11.0)
[2020-10-06] MEDS ORDERED: MORPHINE SULFATE INJ 2 MG/ML DISP.SYRIN IV ONE ×2 (15:30→23:30)
[2020-10-06] MEDS ORDERED: ONDANSETRON HCL/PF 4 MG/2 ML VIAL IVP ONE ×2 (15:30→21:30)
[2020-10-06 15:32] LABS: BILIRUBIN,URINE SMALL (NEGATIVE); COLOR,URINE YELLOW (YELLOW); LEUKOCYTE ESTERASE ,URINE Small (NEGATIVE); NITRITE, URINE Positive (NEGATIVE); PROTEIN,URINE Negative (NEGATIVE); UGLUCOSE Negative (NEGATIVE); UROBILINOGEN,URINE 0.2 EU/dL (0.2)
--- NOTE | 2020-10-06 15:37 | NUR ---
CALLED [facility]
[2020-10-06 15:40] LABS: ALBUMIN 3.7 g/dL (3.4-5.0); BILIRUBIN,DIRECT 0.1 mg/dL (0.0-0.2); BILIRUBIN,TOTAL 0.4 mg/dL (0.2-1.0); CALCIUM, SERUM 8.6 mg/dL (8.5-10.1); CREATININE 0.5 mg/dL (0.6-1.3); POTASSIUM 3.4 mmol/L (3.5-5.1); TOTAL PROTEIN, SERUM 7.9 g/dL (6.4-8.2)
--- NOTE | 2020-10-06 15:40 | NUR ---
PT WENT TO RADIOLOGY
--- NOTE | 2020-10-06 15:45 | NUR ---
PT BACK FROM RADIOLOGY
[2020-10-06 16:19] LABS: BACTERIA,URINE 1+ /HPF (None Seen); RBC,URINE 21-50 /HPF (0-2)
[2020-10-06] MEDS ORDERED: PIPERACILLIN /TAZOBACTAM 3.375 G in IV D5W 50 ML IV ONE (16:30)
--- NOTE | 2020-10-06 16:42 | NUR ---
CALLED PHARMACY, SPOKE TO MIRELLA DAVEY
[2020-10-06] MEDS ORDERED: IV NS 0.9% 1,000 ML BAG IV ONE (17:00)
[2020-10-06] MEDS ORDERED: CEFTRIAXONE 1GM BAG (ER ONLY) 50 ML IV ONE (17:00)
--- NOTE | 2020-10-06 18:34 | NUR ---
MELINDA MIX WORKING ON TX TO [facility] PER ADMITTING
--- NOTE | 2020-10-06 19:27 | NUR ---
REPORT GIVEN TO JUSTICE RIOS
--- NOTE | 2020-10-06 20:07 | NUR ---
PT ACCEPTED AT [facility] BY MD DELGADO.
--- NOTE | 2020-10-06 21:14 | NUR ---
VERBAL ORDER 1MG DILAUDED AND 4MG ZOFRAN
[2020-10-06] MEDS ORDERED: HYDROMORPHONE 1 MG/1 ML DISP.SYRIN ONE (21:16)
[2020-10-06] MEDS ORDERED: HYDROMORPHONE INJ 2 MG/ML DISP.SYRIN IV ONE (21:30)
--- NOTE | 2020-10-06 22:43 | NUR ---
TRANSFER INFORMATION PT ACCEPTED AT [facility] ACCEPTING MD DELGADO PHONE NUMBER FOR REPORT [facility] ETA 30 MIN.
--- NOTE | 2020-10-06 22:54 | NUR ---
REPORT GIVEN TO [facility] BLAN[facility] MARSH.
[2020-10-06 23:10] VITALS: BP 125/68
--- NOTE | 2020-10-06 23:24 | NUR ---
gave report to ems
[2020-10-06] MEDS ORDERED: ONDANSETRON HCL/PF 4 MG/2 ML VIAL IV ONE (23:30)
== END 2020-10-06 23:48 | disposition short-term general hospital (02) ==
LOC: ER 14:22
DX: K57.32 Diverticulitis of large intestine without perforation or abscess without bleeding (principal); K76.0 Fatty (change of) liver, not elsewhere classified; K21.9 Gastro-esophageal reflux disease without esophagitis; Z20.822 Contact with and (suspected) exposure to COVID-19
CPT/HCPCS: 36415; 74176; 80048; 80076; 81001; 83605; 83690; 84145; 84703; 85025; 87040 ×2; 87081; 87086; 87426; 96361; 96365; 96375; 96376; 99285; C9803; J2270 ×2; J2405 ×3; J2543; J7030; J7060; J1170

== ENCOUNTER 2021-01-16 09:56 | Emergency (ER) | payer OTHER ==
[~2021-01-16] VITALS: Ht 160 cm; Wt 81.6 kg
--- NOTE | 2021-01-16 10:04 | NUR ---
Patient came in to the er c/o LLQ pain since saturday, +nausea, constipated x 2 days, 6/10 pain scale. On room air, breathing evenly. connected to the monitor and pulse ox. Kept comfortable, will continue to monitor accordingly.
--- NOTE | 2021-01-16 10:10 | NUR ---
urine collected and sent to lab.
[2021-01-16 10:23] LABS: BASOPHILS # (AUTO) 0.1 K/uL (0.0-0.2); BASOPHILS % (AUTO) 0.9 % (0.0-2.0); EOSINOPHILS % (AUTO) 1.2 % (0.0-6.0); HEMATOCRIT 35 % (33-45); HEMOGLOBIN 11.9 g/dL (11.5-14.8); LYMPHOCYTES # (AUTO) 2.4 K/uL (0.8-4.8); LYMPHOCYTES % (AUTO) 23.8 % (20.0-44.0); MEAN CORPUSCULAR HGB CONC 34 g/dl (31.0-36.0); MEAN CORPUSCULAR VOLUME 91 fL (82-100); MONOCYTES # (AUTO) 0.5 K/uL (0.1-1.30); MONOCYTES % (AUTO) 5.3 % (2.0-12.0); NEUTROPHILS % (AUTO) 68.8 % (43.0-81.0); PLATELET COUNT (AUTO) 285 K/uL (150-450); RED BLOOD CELL COUNT(AUTO) 3.85 MIL/uL (4.0-5.2); WHITE BLOOD COUNT (AUTO) 10.2 K/uL (4.3-11.0)
[2021-01-16 10:25] LABS: BILIRUBIN,URINE SMALL (NEGATIVE); COLOR,URINE ORANGE (YELLOW); LEUKOCYTE ESTERASE ,URINE NEGATIVE (NEGATIVE); NITRITE, URINE NEGATIVE (NEGATIVE); PROTEIN,URINE TRACE mg/dl (NEGATIVE); UGLUCOSE NEGATIVE (NEGATIVE); UROBILINOGEN,URINE 0.2 EU/dL (0.2)
[2021-01-16 10:46] LABS: ALBUMIN 3.4 g/dL (3.4-5.0); BILIRUBIN,DIRECT 0.2 mg/dL (0.0-0.2); BILIRUBIN,TOTAL 0.6 mg/dL (0.2-1.0); CALCIUM, SERUM 8.6 mg/dL (8.5-10.1); CREATININE 0.5 mg/dL (0.6-1.3); POTASSIUM 3.5 mmol/L (3.5-5.1); TOTAL PROTEIN, SERUM 7.8 g/dL (6.4-8.2)
[2021-01-16] MEDS ORDERED: METR500T PO (10:57)
[2021-01-16] MEDS ORDERED: AMOX-427 PO (10:57)
[2021-01-16 11:20] VITALS: BP 119/87
--- NOTE | 2021-01-16 11:21 | NUR ---
Patient discharged to home in stable condition. Written and verbal after care instructions given. Patient verbalizes understanding of instruction.
[2021-01-16 11:32] LABS: BACTERIA,URINE Few /HPF (None Seen); WBC,URINE 0-2 /HPF (0-3)
[2021-01-16 11:33] LABS: MUCUS,URINE Few /LPF (None Seen); SQUAMOUS EPITHELIAL CELL,UR Moderate /HPF (None Seen)
== END 2021-01-16 11:20 | disposition home or self-care (01) ==
LOC: ER 10:00
DX: K57.32 Diverticulitis of large intestine without perforation or abscess without bleeding (principal); K21.9 Gastro-esophageal reflux disease without esophagitis; Z90.89 Acquired absence of other organs; Z79.899 Other long term (current) drug therapy
CPT/HCPCS: 36415; 80048-TC; 80076-TC; 81001; 83690-TC; 84703-TC; 85025-TC

== ENCOUNTER 2021-12-09 00:52 | Emergency (ER) | payer OTHER ==
[~2021-12-09] VITALS: Ht 160 cm; Wt 80.3 kg
[~2021-12-09 00:52] MED LIST changes: -ACET-907 PO; +AMOX-427 PO; -CITA20TA16 PO; -LEVO500T90 PO
--- NOTE | 2021-12-09 01:05 | NUR ---
TO ER BED 9. BIBSELF C/O LEFT SIDE ABD PAIN FOR THE PAST WEEK, PAIN UPON URINATION. PT ALERT AND ORIENTED. RR EVEN AND NON LABORED. CONNECTED TO MONITOR. AWAITING MD EAGLE
--- NOTE | 2021-12-09 01:17 | NUR ---
IV LINE ESTABLISHED, RAC20G
--- NOTE | 2021-12-09 01:17 | NUR ---
BLOOD COLLECTED AND SENT TO LAB
[2021-12-09] MEDS ORDERED: KETOROLAC TROMETHAMINE 15 MG/ML VIAL ONE (01:20)
[2021-12-09] MEDS ORDERED: KETOROLAC TROMETHAMINE INJ 30 MG/ML VIAL IV ONE (01:30)
[2021-12-09] MEDS ORDERED: IV NS 0.9% 1,000 ML BAG IV ONE (01:30)
[2021-12-09 01:50] LABS: BASOPHILS % (AUTO) 0.2 % (0.0-2.0); HEMATOCRIT 36 % (33-45); HEMOGLOBIN 12.1 g/dL (11.5-14.8); LYMPHOCYTES # (AUTO) 2.9 K/uL (0.8-4.8); LYMPHOCYTES % (AUTO) 31.1 % (20.0-44.0); MEAN CORPUSCULAR HGB CONC 34 g/dl (31.0-36.0); MEAN CORPUSCULAR VOLUME 90 fL (82-100); MONOCYTES # (AUTO) 0.5 K/uL (0.1-1.30); MONOCYTES % (AUTO) 5.6 % (2.0-12.0); NEUTROPHILS # (AUTO) 5.6 K/uL (1.8-8.9); NEUTROPHILS % (AUTO) 61.1 % (43.0-81.0); PLATELET COUNT (AUTO) 308 K/uL (150-450); RED BLOOD CELL COUNT(AUTO) 4.01 MIL/uL (4.0-5.2); WHITE BLOOD COUNT (AUTO) 9.2 K/uL (4.3-11.0)
[2021-12-09 02:00] LABS: BILIRUBIN,URINE NEGATIVE (NEGATIVE); COLOR,URINE YELLOW (YELLOW); CREATININE 0.6 mg/dL (0.6-1.3); LEUKOCYTE ESTERASE ,URINE NEGATIVE (NEGATIVE); NITRITE, URINE NEGATIVE (NEGATIVE); POTASSIUM 3.4 mmol/L (3.5-5.1); PROTEIN,URINE NEGATIVE (NEGATIVE); UGLUCOSE NEGATIVE (NEGATIVE); UROBILINOGEN,URINE 0.2 EU/dL (0.2)
[2021-12-09 02:08] LABS: BACTERIA,URINE Rare /HPF (None Seen); RBC,URINE 0-2 /HPF (0-2); SQUAMOUS EPITHELIAL CELL,UR Few /HPF (None Seen); WBC,URINE 0-2 /HPF (0-3)
[2021-12-09] MEDS ORDERED: METR500T PO (05:13)
[2021-12-09] MEDS ORDERED: CIPR500T5 PO (05:13)
[2021-12-09] MEDS ORDERED: METRONIDAZOLE 500 MG TABLET PO ONE (05:30)
[2021-12-09] MEDS ORDERED: CIPROFLOXACIN HCL 250 MG TABLET PO ONE (05:30)
[2021-12-09] MEDS ORDERED: CIPROFLOXACIN HCL 500 MG TABLET ONE (05:34)
--- NOTE | 2021-12-09 05:34 | NUR ---
IV removed. Catheter intact and site benign. Pressure and 4x4 applied to site. No bleeding noted.
--- NOTE | 2021-12-09 05:34 | NUR ---
Patient discharged to home in stable condition. Written and verbal after care instructions given. Patient verbalizes understanding of instruction.
[2021-12-09] MEDS ORDERED: METRONIDAZOLE 500 MG TABLET ONE (05:35)
[2021-12-09 05:36] VITALS: BP 141/76
== END 2021-12-09 05:37 | disposition home or self-care (01) ==
LOC: ER 00:59
DX: K57.92 Diverticulitis of intestine, part unspecified, without perforation or abscess without bleeding (principal); R19.7 Diarrhea, unspecified; K21.9 Gastro-esophageal reflux disease without esophagitis; Z90.89 Acquired absence of other organs; Z79.899 Other long term (current) drug therapy
CPT/HCPCS: 99284; 74176; 96374; 96361; 85025; 80048; 84703; 81001; 36415; J7030; J1885

== ENCOUNTER 2022-05-22 17:08 | Emergency (ER) | payer OTHER ==
[~2022-05-22] VITALS: Ht 160 cm; Wt 81.6 kg
[~2022-05-22 17:08] MED LIST changes: +CIPR500T5 PO
[2022-05-22 17:18] VITALS: BP 127/77
[2022-05-22] MEDS ORDERED: OFLO5DRO LEFTEYE (17:30)
== END 2022-05-22 17:59 | disposition home or self-care (01) ==
LOC: ER 17:08
DX: B34.9 Viral infection, unspecified (principal); K21.9 Gastro-esophageal reflux disease without esophagitis; Z90.49 Acquired absence of other specified parts of digestive tract; Z79.899 Other long term (current) drug therapy

== ENCOUNTER 2022-07-31 17:31 | Emergency (ER) | payer OTHER ==
[~2022-07-31] VITALS: Ht 157.5 cm; Wt 82.1 kg
[~2022-07-31 17:31] MED LIST changes: +OFLO5DRO LEFTEYE
--- NOTE | 2022-07-31 18:03 | NUR ---
TO ER BED 3, NO CHANGE IN CONDITION
--- NOTE | 2022-07-31 18:10 | NUR ---
pt came in due to multiple complaints of pain. she was diafgnosed with diverticulitis last year. headache and abdominal pain 8. no med taken at home. PUT ON BED ON BEDSIDE MONITOR. NOT IN CR DISTRESS. SHE CLAIMS PAIN IS EPISODIC.
--- NOTE | 2022-07-31 18:15 | NUR ---
DR LOUIS AT BEDSIDE FOR EVALUATION. AWAITING FOR ORDERS
[2022-07-31] MEDS ORDERED: FAMOTIDINE/PF INJ 20 MG/2 ML VIAL IV ONE ×2 (19:00→19:10)
[2022-07-31] MEDS ORDERED: DICYCLOMINE HCL INJ 20 MG/2 ML AMPUL IM ONE ×2 (19:00→19:09)
[2022-07-31] MEDS ORDERED: KETOROLAC TROMETHAMINE INJ 30 MG/ML VIAL IV ONE (19:00)
[2022-07-31] MEDS ORDERED: IV NS 0.9% 1,000 ML BAG IV ONE (19:00)
[2022-07-31] MEDS ORDERED: KETOROLAC TROMETHAMINE 15 MG/ML VIAL ONE (19:10)
--- NOTE | 2022-07-31 19:10 | NUR ---
ADDENDUM: Intravenous End Time Documentation: Normal saline 1 liter (IV-WO) : start time: 1909; end time: 2009 : IV site: RAC PIV # 20 Port # 1
[2022-07-31 19:21] LABS: BASOPHILS % (AUTO) 0.3 % (0.0-2.0); EOSINOPHILS % (AUTO) 1.3 % (0.0-6.0); HEMATOCRIT 35 % (33-45); HEMOGLOBIN 11.5 g/dL (11.5-14.8); LYMPHOCYTES % (AUTO) 27.3 % (20.0-44.0); MEAN CORPUSCULAR HGB CONC 33 g/dl (31.0-36.0); MEAN CORPUSCULAR VOLUME 93 fL (82-100); MONOCYTES # (AUTO) 0.5 K/uL (0.1-1.30); MONOCYTES % (AUTO) 4.4 % (2.0-12.0); NEUTROPHILS # (AUTO) 7.3 K/uL (1.8-8.9); NEUTROPHILS % (AUTO) 66.7 % (43.0-81.0); PLATELET COUNT (AUTO) 276 K/uL (150-450); RED BLOOD CELL COUNT(AUTO) 3.75 MIL/uL (4.0-5.2)
--- NOTE | 2022-07-31 19:52 | NUR ---
PT ENDORSED TO [facility] RG FOR CONTINUATION OF CARE
[2022-07-31 20:30] LABS: ALBUMIN 3.2 g/dL (3.4-5.0); BILIRUBIN,DIRECT 0.1 mg/dL (0.0-0.2); BILIRUBIN,TOTAL 0.4 mg/dL (0.2-1.0); CALCIUM, SERUM 8.5 mg/dL (8.5-10.1); CREATININE 0.6 mg/dL (0.6-1.3); POTASSIUM 3.8 mmol/L (3.5-5.1); TOTAL PROTEIN, SERUM 6.6 g/dL (6.4-8.2)
--- NOTE | 2022-07-31 20:37 | NUR ---
URINE COLLECTED AND SENT TO LAB
--- NOTE | 2022-07-31 20:39 | NUR ---
PT TAKEN TO CT VIA [facility]
--- NOTE | 2022-07-31 20:49 | NUR ---
PT RETURNED TO ER BED [address]
[2022-07-31] MEDS ORDERED: DICY10CA37 PO (20:53)
[2022-07-31 21:58] LABS: BILIRUBIN,URINE NEGATIVE (NEGATIVE); COLOR,URINE YELLOW (YELLOW); LEUKOCYTE ESTERASE ,URINE NEGATIVE (NEGATIVE); NITRITE, URINE NEGATIVE (NEGATIVE); PROTEIN,URINE NEGATIVE (NEGATIVE); UGLUCOSE NEGATIVE (NEGATIVE); UROBILINOGEN,URINE 0.2 EU/dL (0.2)
[2022-07-31 22:08] LABS: SQUAMOUS EPITHELIAL CELL,UR Moderate /HPF (None Seen); WBC,URINE NONE SEEN /HPF (0-3)
[2022-07-31 22:09] LABS: BACTERIA,URINE Moderate /HPF (None Seen)
[2022-07-31] MEDS ORDERED: AMOX-430 PO (22:09)
[2022-07-31 22:21] VITALS: BP 110/75
--- NOTE | 2022-07-31 22:21 | NUR ---
Patient discharged to home in stable condition. Written and verbal after care instructions given. Patient verbalizes understanding of instruction. IV removed. Catheter intact and site benign. Pressure and 4x4 applied to site. No bleeding noted.
== END 2022-07-31 22:22 | disposition home or self-care (01) ==
LOC: ER 17:33
DX: R19.7 Diarrhea, unspecified (principal); R10.32 Left lower quadrant pain; K21.9 Gastro-esophageal reflux disease without esophagitis; Z90.49 Acquired absence of other specified parts of digestive tract; Z79.899 Other long term (current) drug therapy
CPT/HCPCS: 99285; 74176; 96374; 96361; 96375; 85025; 80048; 87086; 83690; 80076; 84703; 81001; 36415; 96372; J3490; J7030; J0500; J1885

== ENCOUNTER 2023-01-06 16:07 | Emergency (ER) | payer OTHER ==
[~2023-01-06] VITALS: Ht 157.5 cm; Wt 76.7 kg
[~2023-01-06 16:07] MED LIST changes: +AMOX-430 PO; +CEFD300C3 PO; +DICY10CA37 PO
[2023-01-06 17:58] LABS: BASOPHILS % (AUTO) 0.2 % (0.0-2.0); EOSINOPHILS # (AUTO) 0.2 K/uL (0.0-0.7); EOSINOPHILS % (AUTO) 1.7 % (0.0-6.0); HEMATOCRIT 34 % (33-45); HEMOGLOBIN 11.4 g/dL (11.5-14.8); LYMPHOCYTES # (AUTO) 2.9 K/uL (0.8-4.8); MEAN CORPUSCULAR HEMOGLOBIN 32 PG (26.0-33.0); MEAN CORPUSCULAR HGB CONC 34 g/dl (31.0-36.0); MEAN CORPUSCULAR VOLUME 94 fL (82-100); MONOCYTES # (AUTO) 0.5 K/uL (0.1-1.30); MONOCYTES % (AUTO) 4.8 % (2.0-12.0); NEUTROPHILS # (AUTO) 6.1 K/uL (1.8-8.9); NEUTROPHILS % (AUTO) 63.3 % (43.0-81.0); PLATELET COUNT (AUTO) 276 K/uL (150-450); RED BLOOD CELL COUNT(AUTO) 3.56 MIL/uL (4.0-5.2); RED CELL DISTRIBUTION WIDTH 12.6 % (11.5-15.0); WHITE BLOOD COUNT (AUTO) 9.7 K/uL (4.3-11.0)
[2023-01-06 18:05] LABS: CALCIUM, SERUM 8.6 mg/dL (8.5-10.1); CREATININE 0.5 mg/dL (0.6-1.3); POTASSIUM 3.5 mmol/L (3.5-5.1)
[2023-01-06 18:20] LABS: ALBUMIN 3.2 g/dL (3.4-5.0); BILIRUBIN,TOTAL 0.2 mg/dL (0.2-1.0); TOTAL PROTEIN, SERUM 6.7 g/dL (6.4-8.2)
[2023-01-06 19:37] LABS: APPEARANCE,URINE CLEAR (CLEAR); BILIRUBIN,URINE NEGATIVE (NEGATIVE); BLOOD, URINE TRACE-INTA Ery/uL (NEGATIVE); COLOR,URINE YELLOW (YELLOW); KETONES,URINE TRACE mg/dL (NEGATIVE); LEUKOCYTE ESTERASE ,URINE NEGATIVE (NEGATIVE); NITRITE, URINE NEGATIVE (NEGATIVE); PH,URINE 7.5 (5.0-8.0); PROTEIN,URINE NEGATIVE (NEGATIVE); UGLUCOSE NEGATIVE (NEGATIVE); UROBILINOGEN,URINE 0.2 EU/dL (0.2)
[2023-01-06 19:49] LABS: ADD URINE CULTURE NO; BACTERIA,URINE None seen /HPF (None Seen); WBC,URINE 0-2 /HPF (0-3)
[2023-01-06 19:50] LABS: MUCUS,URINE Few /LPF (None Seen)
[2023-01-06 20:25] VITALS: BP 108/66; TEMP 98.7; O2SAT 100
== END 2023-01-06 20:26 | disposition home or self-care (01) ==
LOC: ER 16:10
DX: O46.91 Antepartum hemorrhage, unspecified, first trimester (principal); K21.9 Gastro-esophageal reflux disease without esophagitis; R10.2 Pelvic and perineal pain; Z79.899 Other long term (current) drug therapy; Z90.49 Acquired absence of other specified parts of digestive tract; Z3A.01 Less than 8 weeks gestation of pregnancy
CPT/HCPCS: 36415; 76856-TC; 80048-TC; 80076-TC; 81001; 84702-TC; 85025-TC

== ENCOUNTER 2023-02-25 23:42 | Emergency (ER) | payer OTHER ==
[~2023-02-25] VITALS: Ht 160 cm; Wt 78.9 kg
[2023-02-26 00:30] VITALS: BP 123/82; TEMP 98.1
[2023-02-26 02:10] VITALS: O2SAT 98
== END 2023-02-26 02:10 | disposition home or self-care (01) ==
LOC: ER 23:50
DX: O46.90 Antepartum hemorrhage, unspecified, unspecified trimester (principal); K21.9 Gastro-esophageal reflux disease without esophagitis; R10.2 Pelvic and perineal pain; Z90.49 Acquired absence of other specified parts of digestive tract; Z79.899 Other long term (current) drug therapy

== ENCOUNTER 2023-06-01 15:35 | Emergency (ER) | payer OTHER | END 2023-06-01 16:08 | disposition left against medical advice (07) | LOC: ER 15:50 | DX: N76.0 Acute vaginitis (principal); Z53.21 Procedure and treatment not carried out due to patient leaving prior to being seen by health care provider ==

== ENCOUNTER 2023-06-22 14:04 | Emergency (ER) | payer OTHER ==
[~2023-06-22] VITALS: Ht 157.5 cm; Wt 76.7 kg
[2023-06-22 15:18] LABS: APPEARANCE,URINE SLIGHTLY CLOUDY (CLEAR); BILIRUBIN,URINE NEGATIVE (NEGATIVE); BLOOD, URINE 3+ Ery/uL (NEGATIVE); COLOR,URINE YELLOW (YELLOW); KETONES,URINE NEGATIVE (NEGATIVE); LEUKOCYTE ESTERASE ,URINE TRACE (NEGATIVE); NITRITE, URINE NEGATIVE (NEGATIVE); PROTEIN,URINE NEGATIVE (NEGATIVE); UGLUCOSE NEGATIVE (NEGATIVE); UROBILINOGEN,URINE 0.2 EU/dL (0.2)
[2023-06-22 15:51] LABS: ADD URINE CULTURE YES; BACTERIA,URINE 1+ /HPF (None Seen)
[2023-06-22 16:10] LABS: BASOPHILS % (AUTO) 0.4 % (0.0-2.0); EOSINOPHILS # (AUTO) 0.1 K/uL (0.0-0.7); EOSINOPHILS % (AUTO) 1.4 % (0.0-6.0); HEMATOCRIT 35 % (33-45); HEMOGLOBIN 12.2 g/dL (11.5-14.8); LYMPHOCYTES # (AUTO) 2.4 K/uL (0.8-4.8); LYMPHOCYTES % (AUTO) 23.7 % (20.0-44.0); MEAN CORPUSCULAR HEMOGLOBIN 32 PG (26.0-33.0); MEAN CORPUSCULAR HGB CONC 35 g/dl (31.0-36.0); MEAN CORPUSCULAR VOLUME 93 fL (82-100); MONOCYTES # (AUTO) 0.4 K/uL (0.1-1.30); MONOCYTES % (AUTO) 4.3 % (2.0-12.0); NEUTROPHILS # (AUTO) 7.1 K/uL (1.8-8.9); NEUTROPHILS % (AUTO) 70.2 % (43.0-81.0); PLATELET COUNT (AUTO) 305 K/uL (150-450); RED BLOOD CELL COUNT(AUTO) 3.78 MIL/uL (4.0-5.2); RED CELL DISTRIBUTION WIDTH 12.6 % (11.5-15.0); WHITE BLOOD COUNT (AUTO) 10.2 K/uL (4.3-11.0)
[2023-06-22 16:24] LABS: CALCIUM, SERUM 8.4 mg/dL (8.5-10.1); CREATININE 0.7 mg/dL (0.6-1.3); POTASSIUM 3.7 mmol/L (3.5-5.1)
[2023-06-22] MEDS ORDERED: NITR100C6 PO (16:50)
[2023-06-22 17:01] VITALS: BP 118/70; TEMP 98.2; O2SAT 97
== END 2023-06-22 17:07 | disposition home or self-care (01) ==
LOC: ER 14:04
DX: O20.9 Hemorrhage in early pregnancy, unspecified (principal); Z3A.01 Less than 8 weeks gestation of pregnancy; K21.9 Gastro-esophageal reflux disease without esophagitis; Z90.89 Acquired absence of other organs
CPT/HCPCS: 36415; 76856-TC; 80048-TC; 81001; 84702-TC; 85025-TC

== ENCOUNTER 2023-06-29 11:34 | Emergency (ER) | payer OTHER ==
[~2023-06-29] VITALS: Ht 157.5 cm; Wt 63.5 kg
[~2023-06-29 11:34] MED LIST changes: +NITR100C6 PO
[2023-06-29 12:19] LABS: BASOPHILS % (AUTO) 0.4 % (0.0-2.0); EOSINOPHILS # (AUTO) 0.1 K/uL (0.0-0.7); EOSINOPHILS % (AUTO) 1.9 % (0.0-6.0); HEMATOCRIT 34 % (33-45); HEMOGLOBIN 11.7 g/dL (11.5-14.8); LYMPHOCYTES # (AUTO) 2.3 K/uL (0.8-4.8); LYMPHOCYTES % (AUTO) 34.3 % (20.0-44.0); MEAN CORPUSCULAR HEMOGLOBIN 31 PG (26.0-33.0); MEAN CORPUSCULAR HGB CONC 34 g/dl (31.0-36.0); MEAN CORPUSCULAR VOLUME 91 fL (82-100); MONOCYTES # (AUTO) 0.3 K/uL (0.1-1.30); NEUTROPHILS % (AUTO) 59.4 % (43.0-81.0); PLATELET COUNT (AUTO) 273 K/uL (150-450); RED BLOOD CELL COUNT(AUTO) 3.77 MIL/uL (4.0-5.2); RED CELL DISTRIBUTION WIDTH 12.4 % (11.5-15.0); WHITE BLOOD COUNT (AUTO) 6.7 K/uL (4.3-11.0)
[2023-06-29 12:55] VITALS: BP 128/68; TEMP 98.2; O2SAT 97
== END 2023-06-29 12:56 | disposition home or self-care (01) ==
LOC: ER 11:44
DX: O03.9 Complete or unspecified spontaneous abortion without complication (principal); R10.2 Pelvic and perineal pain; K21.9 Gastro-esophageal reflux disease without esophagitis; Z90.89 Acquired absence of other organs; Z79.899 Other long term (current) drug therapy
CPT/HCPCS: 36415; 76856-TC; 84702-TC; 85025-TC

== ENCOUNTER 2023-07-17 14:14 | Emergency (ER) | payer OTHER ==
[~2023-07-17] VITALS: Ht 157.5 cm; Wt 74.4 kg
[2023-07-17] MEDS ORDERED: KETOROLAC TROMETHAMINE 15 MG/ML VIAL ONE (15:13)
[2023-07-17] MEDS ORDERED: LIDOCAINE 5% (PATCH) 1 EA PATCH TP ONE (15:13)
[2023-07-17] MEDS ORDERED: ACETAMINOPHEN ES 500 MG TABLET ONE (15:14)
[2023-07-17] MEDS ORDERED: CYCLOBENZAPRINE 10 MG TABLET ONE (15:14)
[2023-07-17] MEDS: ACETAMINOPHEN ES 500 MG TABLET PO ONE (15:23)
[2023-07-17] MEDS: LIDOCAINE 5% (PATCH) 1 EA PATCH TP SCH (15:23)
[2023-07-17] MEDS: CYCLOBENZAPRINE 10 MG TABLET PO ONE (15:23)
[2023-07-17 15:28] LABS: PREGNANCY TEST URINE QUAL NEGATIVE (NEGATIVE)
[2023-07-17] MEDS: KETOROLAC TROMETHAMINE 15 MG/ML VIAL IM ONE (15:37)
[2023-07-17] MEDS ORDERED: CYCL10TA9 PO (17:38)
[2023-07-17] MEDS ORDERED: IBUP-1955 PO (17:38)
[2023-07-17] MEDS ORDERED: LIDO700A30 TP (17:38)
[2023-07-17 17:45] VITALS: BP 110/67; TEMP 98.8; O2SAT 99
== END 2023-07-17 17:45 | disposition home or self-care (01) ==
LOC: ER 14:28
DX: M62.830 Muscle spasm of back (principal); K21.9 Gastro-esophageal reflux disease without esophagitis; Z90.89 Acquired absence of other organs; Z79.899 Other long term (current) drug therapy
CPT/HCPCS: 99284; 96372; 84703; J1885

== ENCOUNTER 2023-08-17 11:30 | Emergency (ER) | payer OTHER ==
[~2023-08-17] VITALS: Ht 162.6 cm; Wt 73.9 kg
[~2023-08-17 11:30] MED LIST changes: +CYCL10TA9 PO; +IBUP-1955 PO; +LIDO700A30 TP
[2023-08-17 12:39] LABS: APPEARANCE,URINE SLIGHTLY CLOUDY (CLEAR); BILIRUBIN,URINE NEGATIVE (NEGATIVE); BLOOD, URINE 1+ Ery/uL (NEGATIVE); COLOR,URINE YELLOW (YELLOW); KETONES,URINE NEGATIVE (NEGATIVE); LEUKOCYTE ESTERASE ,URINE TRACE (NEGATIVE); NITRITE, URINE NEGATIVE (NEGATIVE); PH,URINE 7.5 (5.0-8.0); PROTEIN,URINE NEGATIVE (NEGATIVE); UGLUCOSE NEGATIVE (NEGATIVE); UROBILINOGEN,URINE 0.2 EU/dL (0.2)
[2023-08-17 12:42] LABS: PREGNANCY TEST URINE QUAL NEGATIVE (NEGATIVE)
[2023-08-17 13:10] LABS: ADD URINE CULTURE YES; BACTERIA,URINE Few /HPF (None Seen)
[2023-08-17 13:11] LABS: SQUAMOUS EPITHELIAL CELL,UR Moderate /HPF (None Seen)
[2023-08-17] MEDS ORDERED: METR500T PO (13:14)
[2023-08-17] MEDS ORDERED: CEPH-570 PO (13:14)
[2023-08-17 13:26] VITALS: BP 124/74; TEMP 98.9; O2SAT 99
== END 2023-08-17 13:26 | disposition home or self-care (01) ==
LOC: ER 11:30
DX: N39.0 Urinary tract infection, site not specified (principal); N76.0 Acute vaginitis; B96.89 Other specified bacterial agents as the cause of diseases classified elsewhere
CPT/HCPCS: 81001; 84703-TC; 87110-TC; 87491; 87591

== ENCOUNTER 2023-09-23 17:27 | Emergency (ER) | payer OTHER ==
[~2023-09-23] VITALS: Ht 162.6 cm; Wt 72.6 kg
[~2023-09-23 17:27] MED LIST changes: +CEPH-570 PO
[2023-09-23 18:56] VITALS: BP 118/74; TEMP 98.6; O2SAT 98
== END 2023-09-23 18:56 | disposition home or self-care (01) ==
LOC: ER 17:36
DX: O9A.219 Injury, poisoning and certain other consequences of external causes complicating pregnancy, unspecified trimester (principal); S01.512A Laceration without foreign body of oral cavity, initial encounter; J34.89 Other specified disorders of nose and nasal sinuses; Z3A.00 Weeks of gestation of pregnancy not specified; Y04.2XXA Assault by strike against or bumped into by another person, initial encounter; Y93.89 Activity, other specified; Y92.89 Other specified places as the place of occurrence of the external cause; Y99.8 Other external cause status

== ENCOUNTER 2024-07-08 19:24 | Emergency (ER) | payer OTHER ==
[~2024-07-08] VITALS: Ht 160 cm; Wt 76.2 kg
[2024-07-08] MEDS: IV NS 0.9% 1,000 ML BAG IV ONE (20:06)
[2024-07-08 20:10] LABS: APPEARANCE,URINE CLEAR (CLEAR); BILIRUBIN,URINE NEGATIVE (NEGATIVE); BLOOD, URINE 1+ Ery/uL (NEGATIVE); COLOR,URINE YELLOW (YELLOW); KETONES,URINE NEGATIVE (NEGATIVE); LEUKOCYTE ESTERASE ,URINE NEGATIVE (NEGATIVE); NITRITE, URINE NEGATIVE (NEGATIVE); PH,URINE 8.5 (5.0-8.0); PROTEIN,URINE TRACE mg/dl (NEGATIVE); UGLUCOSE NEGATIVE (NEGATIVE)
[2024-07-08 20:14] LABS: PREGNANCY TEST URINE QUAL NEGATIVE (NEGATIVE)
[2024-07-08 20:16] LABS: BASOPHILS # (AUTO) 0.1 K/uL (0.0-0.2); BASOPHILS % (AUTO) 0.6 % (0.0-2.0); EOSINOPHILS # (AUTO) 0.1 K/uL (0.0-0.7); EOSINOPHILS % (AUTO) 0.8 % (0.0-6.0); HEMATOCRIT 36 % (33-45); LYMPHOCYTES # (AUTO) 2.3 K/uL (0.8-4.8); LYMPHOCYTES % (AUTO) 17.3 % (20.0-44.0); MEAN CORPUSCULAR HEMOGLOBIN 31 PG (26.0-33.0); MEAN CORPUSCULAR HGB CONC 34 g/dl (31.0-36.0); MEAN CORPUSCULAR VOLUME 91 fL (82-100); MONOCYTES # (AUTO) 0.7 K/uL (0.1-1.30); MONOCYTES % (AUTO) 4.9 % (2.0-12.0); NEUTROPHILS # (AUTO) 10.2 K/uL (1.8-8.9); NEUTROPHILS % (AUTO) 76.4 % (43.0-81.0); PLATELET COUNT (AUTO) 283 K/uL (150-450); RED CELL DISTRIBUTION WIDTH 12.6 % (11.5-15.0); WHITE BLOOD COUNT (AUTO) 13.3 K/uL (4.3-11.0)
[2024-07-08 20:24] LABS: CALCIUM, SERUM 9.1 mg/dL (8.5-10.1); CREATININE 0.6 mg/dL (0.6-1.3); POTASSIUM 3.6 mmol/L (3.5-5.1)
[2024-07-08 20:30] LABS: ALBUMIN 3.7 g/dL (3.4-5.0); BILIRUBIN,DIRECT 0.1 mg/dL (0.0-0.2); BILIRUBIN,TOTAL 0.6 mg/dL (0.2-1.0); TOTAL PROTEIN, SERUM 7.5 g/dL (6.4-8.2)
[2024-07-08] MEDS ORDERED: KETOROLAC TROMETHAMINE INJ 30 MG/ML VIAL ONE (20:30)
[2024-07-08] MEDS: KETOROLAC TROMETHAMINE INJ 30 MG/ML VIAL IV ONE (20:30)
[2024-07-08 20:50] VITALS: TEMP 99.1
[2024-07-08 20:59] LABS: ADD URINE CULTURE NO; BACTERIA,URINE Few /HPF (None Seen); SQUAMOUS EPITHELIAL CELL,UR Moderate /HPF (None Seen)
[2024-07-08] MEDS ORDERED: AMOX-430 PO (21:27)
[2024-07-08] MEDS ORDERED: AMOX/CLAVULANATE 875 MG TABLET ONE (21:34)
[2024-07-08] MEDS: AMOX/CLAVULANATE 875 MG TABLET PO ONE (21:35)
[2024-07-08 21:44] VITALS: BP 120/66; O2SAT 98
== END 2024-07-08 21:45 | disposition home or self-care (01) ==
LOC: ER 19:39
DX: K57.32 Diverticulitis of large intestine without perforation or abscess without bleeding (principal); R10.32 Left lower quadrant pain; R10.2 Pelvic and perineal pain; Z79.899 Other long term (current) drug therapy
CPT/HCPCS: 99285; 74176; 96374; 96361; 85025; 80048; 87086; 83690; 80076; 84703; 81001; 36415; 84702; J1885; J7030

== ENCOUNTER 2024-12-17 19:51 | Emergency (ER) | payer OTHER ==
[~2024-12-17] VITALS: Ht 162.6 cm; Wt 74.8 kg
[2024-12-17 20:20] LABS: PLATELET COUNT (AUTO) 308 K/uL (150-450); RED BLOOD CELL COUNT(AUTO) 3.88 MIL/uL (4.0-5.2); RED CELL DISTRIBUTION WIDTH 12.6 % (11.5-15.0); WHITE BLOOD COUNT (AUTO) 11.6 K/uL (4.3-11.0)
[2024-12-17 20:34] LABS: ASPARTATE AMINOTRANSFERASE 27.0 U/L (15-37); CALCIUM, SERUM 9.0 mg/dL (8.5-10.1); CREATININE 0.7 mg/dL (0.6-1.3); SODIUM SERUM 135.0 mmol/L (136-145); TOTAL PROTEIN, SERUM 7.6 g/dL (6.4-8.2); UREA NITROGEN, BLOOD 18.0 mg/dL (7-18)
[2024-12-17] MEDS ORDERED: AMOX-430 PO (20:44)
[2024-12-17] MEDS ORDERED: POLY17PO4 PO (20:44)
[2024-12-17 21:05] LABS: APPEARANCE,URINE CLEAR (CLEAR); BLOOD, URINE 2+ Ery/uL (NEGATIVE); LEUKOCYTE ESTERASE ,URINE NEGATIVE (NEGATIVE); NITRITE, URINE NEGATIVE (NEGATIVE); UGLUCOSE NEGATIVE (NEGATIVE)
[2024-12-17 21:08] LABS: PREGNANCY TEST URINE QUAL NEGATIVE (NEGATIVE)
[2024-12-17 21:18] LABS: ADD URINE CULTURE NO
[2024-12-17] MEDS: HYDROCODONE/APAP 5/325MG TABLET PO ONE (21:25)
[2024-12-17] MEDS ORDERED: HYDROCODONE/APAP 5/325MG TABLET ONE (21:25)
[2024-12-17] MEDS ORDERED: MORPHINE SULFATE INJ 4 MG/ML DISP.SYRIN ONE (21:45)
[2024-12-17] MEDS ORDERED: ONDANSETRON HCL/PF 4 MG/2 ML VIAL ONE (21:45)
[2024-12-17] MEDS ORDERED: PIPERACI/TAZO 3.375GM/D5W 50ML PB IV ONE (21:45)
[2024-12-17] MEDS: IV NS 0.9% 1,000 ML BAG IV ONE (21:46)
[2024-12-17] MEDS: MORPHINE SULFATE INJ 2 MG/ML DISP.SYRIN IV ONE (21:46)
[2024-12-17] MEDS: ONDANSETRON HCL/PF 4 MG/2 ML VIAL IV ONE (21:46)
[2024-12-17] MEDS: PIPERACILLIN /TAZOBACTAM 3.375 G in IV D5W 50 ML IV ONE (21:46)
[2024-12-18 00:49] VITALS: BP 126/78; TEMP 98.2; O2SAT 98
== END 2024-12-18 00:50 | disposition home or self-care (01) ==
LOC: ER 19:54
DX: K57.32 Diverticulitis of large intestine without perforation or abscess without bleeding (principal); K59.00 Constipation, unspecified; R10.32 Left lower quadrant pain
CPT/HCPCS: 99284; 96365; 96375; 85025; 80048; 83690; 80076; 84703; 81001; 36415; J2270; J2405; J2543 ×2; J7060; J7030